=== PATIENT | male | born 1975 | race Caucasian/White ===

== ENCOUNTER 2021-12-31 09:32 | Emergency (ER) | payer OTHER, SELFPAY ==
--- NOTE | 2021-12-31 10:00 | XR_ITS ---
PROCEDURE INFORMATION: Exam: XR Left Ribs with PA Chest Exam date and time: 12/31/2021 10:11 AM Age: 46 years old Clinical indication: Injury or trauma; Fall; Rib area, left side; Blunt trauma; Additional info: Fell off bucket and landed on car bumper injury left side ribs TECHNIQUE: Imaging protocol: Radiologic exam of the Left ribs with PA chest. Views: 3 views COMPARISON: No relevant prior studies available. FINDINGS: Lungs: The regions of subsegmental atelectasis versus parenchymal scarring at the left lung base. Pleural spaces: Unremarkable. No pleural effusion. No pneumothorax. Heart/Mediastinum: Unremarkable. No cardiomegaly. Bones/joints: Unremarkable. IMPRESSION: No evidence of acute osseous injury.
[2021-12-31 10:04] VITALS: BP 139/77; PULSE 68; RESP 17; TEMP 36.8; O2SAT 96; BMI 31.9
--- NOTE | 2021-12-31 10:11 | HMH.EDUTC ---
[facility] [place] Impression: Rib contusion Qualifiers: Encounter type: initial encounter Laterality: left Qualified Code(s): S20.212A - Contusion of left front wall of thorax, initial encounter Disposition: Home, Self-Care Condition on Discharge: Good Instructions: DI for Rib Contusion Additional Instructions: *Diclofenac as previously prescribed for rib pain *Remember you had a Toradol shot in the clinic today, which is similar to Motrin and Diclofenac so do not take any for the next few hours *Not additional anti-inflammatory like motrin, aleve, advil with the above amount of ibuprofen. You can still take Tylenol every 4 hours as needed if you need something else for pain *Ice 20 minutes every 2 hours for the first 48 hours after the initial injury followed by moist heat every 20 minutes 3-4 times a day to affected area *Keep this area active, no movement leads to more stiffness, However take it easy and avoid heavy lifting pushing or pulling *Follow up with you family doctor if no improvement for further treatment Over the counter Lidocaine and/or Pain patches may help with Pain and discomfort of rib pain Straight to ER if any life threatening symptoms Referrals: Provider,Referral, MD [Primary Care Provider] - As needed Time of Disposition: 11:06 Medical Decision Making - Alex Inquiry Pt receiving controlled substance: No Alex was queried for this patient: No Vital Signs: 12/31/21 10:04 12/31/21 11:08 Temperature 98.2 F 98.2 F Temperature Source Oral Pulse Rate 68 Pulse Rate [Left] 68 Respiratory Rate 17 17 Blood Pressure 139/77 Blood Pressure [Right Arm] 139/77 Blood Pressure Mean [Right Arm] 97 02 Sat by Pulse Oximetry 96 Orders (Tests/Meds): ED MEDICATIONS Discontinued Medications Generic Name Dose Route Start Last Admin Trade Name Freq PRN Reason Stop Dose Admin Ketorolac Tromethamine 60 mg 12/31/21 10:58 12/31/21 11:08 Ketorolac 60mg/2ml Vial IM 12/31/21 10:59 60 mg ONCE ONE Administration - Radiology Data #1 Image(s): Chest (with left ribs) Image Reviewed: Yes I have reviewed radiologist's interpretation IMPRESSION: No evidence of acute osseous injury. Medical Decision Narrative: Patient states that he hasnt taken diclofenac or any motrin today for pain [facility] [place] - General Stated complaint: AO 12/31 fall rib pain Time Seen by Provider: 12/31/21 10:11 Mode of Arrival: Ambulatory Source of Information: Patient Description of Symptoms (Recalled from Triage Doc. by RN): patient comes in for left rib pain. wednesday patient was standing on a bucket learning over a fender working on his vehicle. he lost his footing on the bucket and fell onto the bumper hitting his ribs. patient states that he is in alot of pain. HEENT Symptoms (Recalled from RN notes): No Resp Symptoms (Recalled from RN notes): No Skin Symptoms (Recalled from RN notes): No MS Symptoms (Recalled from RN notes): Yes Functional Status (Recalled from RN notes): n/a - History of Present Illness Provider Complaint: Patient states that over the weekend he was standing on bucket working on car when the bucket slipped and he fell and hit his left ribs against the side of the bumper on the car States that ever since he has been having pain in his left ribs when he tries to lay on that side or get up States that he has been taking OTC tylenol and it hasnt helped much so today when he was still having pain he came in Denies SOA - Related Data Home Medications Medication Instructions Recorded Confirmed Diclofenac Sodium [Diclofenac 75mg 75 mg PO BID 12/31/21 12/31/21 Tab] Ezetimibe 10 mg PO DAILY 12/31/21 12/31/21 Gabapentin 300 mg PO NEEDED PRN 12/31/21 12/31/21 lisinopriL [Lisinopril] 2.5 mg PO DAILY 12/31/21 12/31/21 Allergies Allergy/AdvReac Type Severity Reaction Status Date / Time Penicillins Allergy Verified 12/31/21 10:06 - Worker's Comp Is this a Worker's
[2021-12-31 11:08] VITALS: BP 139/77; PULSE 68; RESP 17; TEMP 36.8
== END 2021-12-31 11:15 | disposition home or self-care (01) ==
PROVIDERS: Emergency Provider Nurse Practitioner
DX: S20.212A Contusion of left front wall of thorax, initial encounter (principal); W19.XXXA Unspecified fall, initial encounter; Z79.899 Other long term (current) drug therapy; Z88.0 Allergy status to penicillin
CPT/HCPCS: 71101; 96372; 99212; G0463

== ENCOUNTER → 2022-09-17 08:41 | Outpatient (CLI) | payer OTHER, SELFPAY ==
--- NOTE | 2022-09-17 08:46 | XR_ITS ---
FINAL REPORT CLINICAL HISTORY: Right foot pain COMPARISON: None FINDINGS: RIGHT FOOT: Three views of the right foot were obtained. There is no acute fracture or dislocation. The joint spaces are intact. Small plantar calcaneal spur. There is no soft tissue abnormality. IMPRESSION: No acute bony abnormality. Reviewed, Interpreted and Dictated by Lele Koehler III, MD Transcribed by Jenni Tompkins Authenticated and [facility]
--- NOTE | 2022-09-17 08:46 | XR_ITS ---
FINAL REPORT CLINICAL HISTORY: Left foot pain COMPARISON: None FINDINGS: LEFT FOOT: Three views of the left foot were obtained. There is no acute fracture or dislocation. The joint spaces are intact. Small plantar calcaneal spur. There is no soft tissue abnormality. IMPRESSION: No acute bony abnormality. Reviewed, Interpreted and Dictated by Lele Koehler III, MD Transcribed by Jenni Tompkins Authenticated and [facility]
== END ==
PROVIDERS: PCP Nurse Practitioner; Visit Provider Nurse Practitioner Family
DX: M79.672 Pain in left foot (principal); M79.671 Pain in right foot
CPT/HCPCS: 73630

== ENCOUNTER 2023-02-09 07:00 | Outpatient (RCR) | payer OTHER, SELFPAY | END 2023-03-03 07:46 | disposition home or self-care (01) | LOC: PT 07:00 | PROVIDERS: PCP Nurse Practitioner; Visit Provider Podiatrist Foot & Ankle Surgery | DX: M72.2 Plantar fascial fibromatosis (principal); M67.02 Short Achilles tendon (acquired), left ankle | CPT/HCPCS: 97010; 97014; 97110; 97112; 97140; 97163; 97530; G0283 ==